=== PATIENT | female | born 1955 | race Caucasian/White ===

== ENCOUNTER 2019-08-20 09:36 | Outpatient (CLI) | payer OTHER, SELFPAY ==
--- NOTE | ~2019-08-20 | MR_ITS ---
EXAMINATION: MR breast BI wo/w con INDICATION: History of ductal carcinoma in situ TECHNIQUE: Axial VIBRANT pre and dynamic post contrast, Sagittal VIBRANT post contrast, Axial T2 STIR ASSET COMPARISON: No recent prior examination is currently available for comparison. CONTRAST: Multihance, 15 cc BREAST COMPOSITION: Scattered fibroglandular tissue FINDINGS: RIGHT BREAST: There is mild background parenchymal enhancement. There are multiple tiny enhancing foc i of the central breast which measure 4 mm or less. No linear nonmass enhancement is identified. Ther e are no pathologically enlarged axillary or internal mammary lymph nodes. LEFT BREAST: There is architectural distortion and skin thickening of the left breast, related to horace atment change for left breast cancer. There is minimal background parenchymal enhancement, likely rel ated to radiation treatment. No abnormal enhancement is present after contrast administration. No pa thologically enlarged axillary or internal mammary lymph nodes are identified. IMPRESSION: 1. Multiple tiny foci of enhancement in the right breast which likely reflect asymmetric background p arenchymal enhancement of the right breast compared to the left due to radiation change in the left b reast. Comparison with recent imaging is necessary to evaluate for any suspicious correlate for inter radha change. BI-RADS Category 0: Incomplete: Needs comparison with prior imaging. Reviewed, dictated and finalized at location [facility]. [facility] [employer] IMPRESSION: 1. Multiple tiny foci of enhancement in the right breast which likely reflect a symmetric background parenchymal enhancement of the right breast compared to th e left due to radiation change in the left breast. Comparison with recent imagi ng is necessary to evaluate for any suspicious correlate for interval change. BI-RADS Category 0: Incomplete: Needs comparison with prior imaging.
[2019-08-20 10:36] LABS: Blood Urea Nitrogen 13 mg/dL (8-26); Estimated Glomerular Filt Rate > 60
== END 2019-08-20 09:37 | disposition home or self-care (01) ==
LOC: ANHIMG 09:48
DX: D05.12 Intraductal carcinoma in situ of left breast (principal); R92.8 Other abnormal and inconclusive findings on diagnostic imaging of breast
CPT/HCPCS: 77049; A9577; C8908

== ENCOUNTER 2023-07-13 09:52 | Outpatient (CLI) | payer OTHER, SELFPAY ==
--- NOTE | 2023-07-13 11:00 | NEURO_ITS ---
Impression: # Complains of pain in right hand. # Right mild Carpal Tunnel Syndrome, sensory more than motor. # No ulnar neuropathy. # Normal needle/EMG exam. Nerve Conduction Studies Anti Sensory Summary Table Stim Site NR Peak (ms) P-T Amp (?V) Site1 Site2 Delta-P (ms) Dist (cm) Sam (m/s) Right Median Anti Sensory (2-3nd Digit) Wrist 4.3 28.5 Wrist 2-3nd Digit 4.3 14.0 33 Wrist 4.3 28.2 Wrist 2-3nd Digit 4.3 14.0 33 Right Radial Anti Sensory (Base 1st Digit) Wrist 2.2 19.6 Wrist Base 1st Digit 2.2 0.0 Right Ulnar Anti Sensory (5th Digit) Wrist 2.9 33.9 Wrist 5th Digit 2.9 14.0 48 Motor Summary Table Stim Site NR Onset (ms) O-P Amp (mV) Site1 Site2 Delta-0 (ms) Dist (cm) Sam (m/s) Right Median Motor (Abd Poll Brev) Wrist 4.0 2.6 Elbow Wrist 5.5 29.0 53 Elbow 9.5 3.3 Right Ulnar Motor (Abd Dig Minimi) Wrist 2.7 6.4 A Elbow Wrist 5.3 30.0 57 A Elbow 8.0 5.2 F Wave Studies NR F-Lat (ms) L-R F-Lat (ms) Right Median (Mrkrs) (Abd Poll Brev) 28.72 Right Ulnar (Mrkrs) (Abd Dig Min) 28.03 EMG Side Muscle Nerve Root Ins Act Fibs Amp Dur Recrt Comment Right 1stDorInt Ulnar C8-T1 Nml Nml Nml Nml Nml Right Ext Indicis Radial (Post Int) C7-8 Nml Nml Nml Nml Nml Right Ext Digitorum Radial (Post Int) C7-8 Nml Nml Nml Nml Nml Right BrachioRad Radial C5-6 Nml Nml Nml Nml Nml Right PronatorTeres Median C6-7 Nml Nml Nml Nml Nml Right Abd Poll Brev Median C8-T1 Nml Nml Nml Nml Nml MTDD
== END 2023-07-13 09:53 | disposition home or self-care (01) ==
PROVIDERS: PCP Internal Medicine; Visit Provider Physician Assistant Surgical
DX: M70.21 Olecranon bursitis, right elbow (principal); G56.01 Carpal tunnel syndrome, right upper limb
CPT/HCPCS: 95886; 95909